=== PATIENT | male | born 1985 | race Caucasian/White ===

== ENCOUNTER → 2025-04-07 | Outpatient (CLI) | payer MEDICAID, SELFPAY ==
[2025-04-07 17:28] LABS: Lithium 0.14 mmol/L (0.60-1.20)
[2025-04-07 17:30] LABS: AST(SGOT) 60 U/L (<=37); Alanine Aminotransfer ALT/SGPT 170 U/L (<=46); Albumin, Serum 4.4 g/dL (3.5-5.0); Alkaline Phosphatase 75 U/L (40-129); Anion Gap 17 (5-15); BUN 15 mg/dL (4-19); BUN/Creat Ratio 14.8 RATIO (10-20); Bilirubin, Direct 0.16 mg/dL (0.00-0.30); Calcium,Total 9.7 mg/dL (7.6-11.0); Carbon Dioxide 19.3 mmol/L (21.0-32.0); Chloride 100 mmol/L (98-108); Globulin 2.9 g/dL (2.2-4.2); Glucose 160 mg/dL (70-99); Potassium 4.4 mmol/L (3.3-5.1)
== END | disposition home or self-care (01) ==
PROVIDERS: PCP Family Medicine; Referring Provider Family Medicine; Visit Provider Family Medicine
DX: J44.9 Chronic obstructive pulmonary disease, unspecified (principal); F25.0 Schizoaffective disorder, bipolar type; F33.9 Major depressive disorder, recurrent, unspecified
CPT/HCPCS: 80048; 80076; 80178